=== PATIENT | male | born 1945 | race African-American/Black ===

== ENCOUNTER 2025-01-19 11:45 | Outpatient (CLI) | payer MEDICARE | END 2025-01-19 11:46 | LOC: PET 11:45 | PROVIDERS: ATTEND Physician Assistant | DX: C34.91 Malignant neoplasm of unspecified part of right bronchus or lung (principal); Z90.2 Acquired absence of lung [part of]; R91.8 Other nonspecific abnormal finding of lung field | CPT/HCPCS: 78815; A9552 ==